=== PATIENT | female | born 1965 | race African-American/Black ===

== ENCOUNTER 2024-07-29 07:45 | Emergency (ER) | payer MEDICAID ==
[~2024-07-29] VITALS: Ht 172.7 cm; Wt 80.0 kg
[2024-07-29 07:59] VITALS: TEMP 98.7; O2SAT 98
[2024-07-29] MEDS ORDERED: IPRATROPIUM/ALBUTEROL 0.5-3(2.5)MG/3ML NEB HHN ONE (08:30)
[2024-07-29 10:45] VITALS: PULSE 92; RESP 24
[2024-07-29] MEDS: IPRATROPIUM/ALBUTEROL 0.5-3(2.5)MG/3ML NEB HHN NR (10:45)
[2024-07-29 11:43] LABS: BG BASE EXCESS 1.9 mmol/L (-2.0-3.0); BG CARBOXYHEMOGLOBIN 2.6 % (0.5-1.5); BG DEOXYHEMOGLOBIN 7.7 % (0.0-5.0); BG FRACTION INSPIRED OXYGEN 21; BG HCO3 ACT 27.1 mmol/L (21.0-28.0); BG METHEMOGLOBIN 0.3 % (0.5-1.5); BG OXYGEN SATURATION 92.1 % (94.0-98.0); BG OXYHEMOGLOBIN 89.4 % (94.0-98.0); BG PCO2 44.5 mmHg (32.0-45.0); BG PH 7.402 (7.350-7.450); BG PO2 61.1 mmHg (83.0-108.0); BG SAMPLE SITE LEFT RADIAL; BG TOTAL HEMOGLOBIN 14.6 g/dL (12.0-16.0); BG VENT MODE ROOM AIR
[2024-07-29] MEDS ORDERED: IBUP-2028 MT (11:58)
[2024-07-29] MEDS ORDERED: AZIT250T MT (11:58)
[2024-07-29] MEDS ORDERED: ALBU18HF2 IH ×2 (11:58→20:58)
[2024-07-29] MEDS: IBUPROFEN 600MG TABLET PO ONE (12:40)
[2024-07-29 12:47] VITALS: BP 122/73; PULSE 90; RESP 20; O2SAT 96
[2024-07-29] MEDS ORDERED: LEVO750T68 MT (20:58)
[2024-07-29] MEDS ORDERED: P20 MT (20:58)
== END 2024-07-29 13:38 | disposition home or self-care (01) ==
LOC: ER 07:52
DX: Z76.0 Encounter for issue of repeat prescription (principal); I10 Essential (primary) hypertension; J44.9 Chronic obstructive pulmonary disease, unspecified; Z85.9 Personal history of malignant neoplasm, unspecified; Z79.899 Other long term (current) drug therapy
CPT/HCPCS: 71045; 94640; 82805; 82375; 93005; 99285; 36600; Z7610 ×3

== ENCOUNTER 2024-07-29 17:18 | Emergency (ER) | payer MEDICAID ==
[~2024-07-29] VITALS: Ht 175.3 cm; Wt 114.0 kg
[~2024-07-29 17:18] MED LIST: ALBU18HF2 IH; AZIT250T MT; IBUP-2028 MT
[2024-07-29 17:23] VITALS: BP 109/85; PULSE 96; RESP 18; TEMP 98.3; O2SAT 96
[2024-07-29] MEDS ORDERED: ALBU18HF2 IH (20:58)
[2024-07-29] MEDS ORDERED: P20 MT (20:58)
[2024-07-29] MEDS ORDERED: LEVO750T68 MT (20:58)
== END 2024-07-29 17:51 | disposition left against medical advice (07) ==
LOC: ER 17:18
DX: R06.02 Shortness of breath (principal); Z53.21 Procedure and treatment not carried out due to patient leaving prior to being seen by health care provider

== ENCOUNTER 2024-07-29 19:03 | Emergency (ER) | payer MEDICAID ==
[~2024-07-29] VITALS: Ht 162.6 cm; Wt 104.0 kg
[2024-07-29 19:05] VITALS: BP 115/83; TEMP 98.3
[2024-07-29] MEDS: ALBUTEROL (0.083%) 2.5MG/3ML NEB HHN STA (20:21)
[2024-07-29 20:22] VITALS: PULSE 80; RESP 18; O2SAT 95
[2024-07-29] MEDS: IPRATROPIUM BROMIDE (0.02%) 0.5MG/2.5ML NEB HHN STA (20:22)
[2024-07-29] MEDS ORDERED: P20 MT (20:58)
[2024-07-29] MEDS ORDERED: ALBU18HF2 IH (20:58)
[2024-07-29] MEDS ORDERED: LEVO750T68 MT (20:58)
== END 2024-07-29 21:23 | disposition home or self-care (01) ==
LOC: ER 19:03
DX: J44.1 Chronic obstructive pulmonary disease with (acute) exacerbation (principal); I10 Essential (primary) hypertension; F19.90 Other psychoactive substance use, unspecified, uncomplicated; Z85.9 Personal history of malignant neoplasm, unspecified; Z79.899 Other long term (current) drug therapy
CPT/HCPCS: 94640; 99283; Z7610 ×3

== ENCOUNTER 2024-12-11 06:26 | Emergency (ER) | payer MEDICAID ==
[~2024-12-11] VITALS: Ht 172.7 cm; Wt 106.0 kg
[~2024-12-11 06:26] MED LIST changes: +LEVO750T68 MT; +P20 MT
[2024-12-11 06:33] VITALS: BP 146/85; PULSE 99; RESP 16; TEMP 36.8; O2SAT 97
[2024-12-11] MEDS ORDERED: ACETAMINOPHEN 325MG TABLET PO ONE (07:15)
[2024-12-11] MEDS ORDERED: KETOROLAC 30MG/ML VIAL IM ONE (07:30)
[2024-12-11] MEDS ORDERED: AMOX1TAB16 MT (09:36)
== END 2024-12-11 09:46 | disposition home or self-care (01) ==
LOC: ER 06:55
DX: L97.118 Non-pressure chronic ulcer of right thigh with other specified severity (principal); E11.9 Type 2 diabetes mellitus without complications; I10 Essential (primary) hypertension; J44.89 Other specified chronic obstructive pulmonary disease; Z85.3 Personal history of malignant neoplasm of breast
CPT/HCPCS: 99283